=== PATIENT | female | born 1950 | race Two or more races ===

== ENCOUNTER 2022-05-27 10:28 | Outpatient (CLI) | payer OTHER ==
[~2022-05-27 10:28] MED LIST: ASA81 MG; CEFTIN500 MG PO; COZAAR25 MG; LIPITOR20 MG; PYRIDIUM DS200 MG PO; SINGULAIR10 MG
== END 2022-05-27 10:32 | disposition home or self-care (01) ==
LOC: NUCLEAR 10:28
PROVIDERS: ATTEND Internal Medicine Pulmonary Disease
DX: I27.24 Chronic thromboembolic pulmonary hypertension (principal)
CPT/HCPCS: 78580; A9540

== ENCOUNTER 2023-09-14 08:02 | Emergency (ER) | payer OTHER ==
[~2023-09-14] VITALS: Ht 160 cm; Wt 68.0 kg
[2023-09-14] MEDS ORDERED: ZOCOR20 MG (08:17)
[2023-09-14] MEDS ORDERED: SYNTHROID50 MCG (08:17)
[2023-09-14] MEDS ORDERED: TENORMIN50 M1 (08:17)
[2023-09-14] MEDS ORDERED: PROTONIX40 MG (08:18)
[2023-09-14] MEDS ORDERED: SYNTHROID75 MCG (08:18)
[2023-09-14] MEDS ORDERED: ZYRTEC10 M3 (08:18)
[2023-09-14] MEDS ORDERED: PEPCID AC20 MG (08:18)
[2023-09-14] MEDS ORDERED: DEXAMETHASONE SODIUM PHOSPHATE 4 MG/ML VIAL IM SCH (09:30)
[2023-09-14] MEDS ORDERED: DEXAMETHASONE SODIUM PHOSPHATE 4 MG/ML VIAL ONE (09:31)
== END 2023-09-14 10:41 | disposition home or self-care (01) ==
LOC: ER 08:03
DX: R51.9 Headache, unspecified (principal); Z91.041 Radiographic dye allergy status; J32.9 Chronic sinusitis, unspecified
CPT/HCPCS: 70210; 96372; 99283; J1100